=== PATIENT | female | born 1955 | race Caucasian/White ===

== ENCOUNTER → 2016-09-26 | Outpatient (CLI) | payer BC ==
[2016-09-26 14:29] LABS: ABSOLUTE EOSINOPHILS # (AUTO) 0.1 10^3/uL (0.0-0.6); ABSOLUTE LYMPHOCYTES (AUTO) 0.8 10^3/uL (0.5-4.7); ABSOLUTE MONOCYTES (AUTO) 0.3 10^3/uL (0.1-1.4); ABSOLUTE NEUT (AUTO) 3.5 10^3/uL (1.7-8.2); BASOPHILS % (AUTO) 0.5 % (0-2); EOSINOPHILS % (AUTO) 1.3 % (0-6); HEMATOCRIT 32.2 % (36.0-47.0); HEMOGLOBIN 10.8 g/dL (12.0-15.5); HGB HCT DIFFERENCE 0.2; LYMPHOCYTES % (AUTO) 17.7 % (13-45); MEAN CORPUSCULAR HEMOGLOBIN 28.5 pg (27.0-33.4); MEAN CORPUSCULAR HGB CONC 33.6 g/dL (32.0-36.0); MEAN CORPUSCULAR VOLUME 85 fl (80-97); MONOCYTES % (AUTO) 7.3 % (3-13); RED CELL DISTRIBUTION WIDTH 15.6 % (11.5-14.0); SEGMENTED NEUTROPHILS % (AUTO) 73.2 % (42-78); WHITE BLOOD COUNT 4.8 10^3/uL (4.0-10.5)
[2016-09-26 14:58] LABS: ALANINE AMINOTRANSFERASE 24 U/L (9-52); ALBUMIN 4.1 g/dL (3.5-5.0); ALKALINE PHOSPHATASE 120 U/L (38-126); AMYLASE 52 U/L (30-110); ANION GAP 15 (5-19); ASPARTATE AMINO TRANSFERASE 18 U/L (14-36); BILIRUBIN,DIRECT 0.3 mg/dL (0.0-0.4); BILIRUBIN,TOTAL 0.6 mg/dL (0.2-1.3); BLOOD UREA NITROGEN 18 mg/dL (7-20); CALCIUM 7.8 mg/dL (8.4-10.2); CARBON DIOXIDE 29 mmol/L (22-30); CHLORIDE 101 mmol/L (98-107); CREATININE RESULT 1.11 mg/dL (0.52-1.25); GLUCOSE 100 mg/dL (75-110); LIPASE 30.6 U/L (23-300); POTASSIUM 5.3 mmol/L (3.6-5.0); SODIUM 144.9 mmol/L (137-145); TOTAL PROTEIN 7.8 g/dL (6.3-8.2)
[2016-09-26 15:23] LABS: CARCINOEMBRYONIC ANTIGEN 1.1 ng/mL (<3.0)
== END ==
LOC: OD 13:47
PROVIDERS: ATTEND Specialist
DX: R10.9 Unspecified abdominal pain (principal); R97.0 Elevated carcinoembryonic antigen [CEA]; R11.0 Nausea
CPT/HCPCS: 36415; 80053; 82150; 82378; 83690; 85025

== ENCOUNTER 2016-12-05 05:32 | Inpatient (IN) | payer BC ==
[2016-11-28 09:11] LABS: HEMATOCRIT 33.3 % (36.0-47.0); HEMOGLOBIN 11.2 g/dL (12.0-15.5); HGB HCT DIFFERENCE 0.3; MEAN CORPUSCULAR HEMOGLOBIN 29.3 pg (27.0-33.4); MEAN CORPUSCULAR HGB CONC 33.6 g/dL (32.0-36.0); MEAN CORPUSCULAR VOLUME 87 fl (80-97); RED BLOOD COUNT 3.82 10^6/uL (3.72-5.28); RED CELL DISTRIBUTION WIDTH 15.5 % (11.5-14.0); WHITE BLOOD COUNT 4.2 10^3/uL (4.0-10.5)
--- NOTE | 2016-11-28 10:35 | EKG REPORT ---
SEVERITY:- NORMAL ECG - SINUS RHYTHM : Confirmed by: Esteban Ocasio 28-Nov-2016 10:34:48
[~2016-12-05 05:32] MED LIST: ACETAMINOPHEN 325 MG TABLET PO PRN; LACTATED RINGERS 1000 ML IV PRN; LIDOCAINE 0.5% INJ-PF (5 MG/ML) 50 ML SDV SUBCUT PRN
[2016-12-05] MEDS ORDERED: BUPIVACAINE HCL 0.25 % INJ/PF (2.5 MG/1 ML) 30 ML VIAL ONE (06:38)
[2016-12-05] MEDS ORDERED: FENTANYL CITRATE INJ/PF 250 MCG/5 ML AMPULE ONE (07:13)
[2016-12-05] MEDS ORDERED: ACETAMINOPHEN 100 ML IV ONE (07:13)
[2016-12-05] MEDS ORDERED: MIDAZOLAM 2 MG/2 ML INJ ONE (07:13)
[2016-12-05] MEDS ORDERED: PROPOFOL INJ 200 MG/20 ML VIAL IV ONE (07:13)
[2016-12-05] MEDS ORDERED: EPHEDRINE SULFATE INJ 50 MG/1 ML AMPULE ONE (07:14)
[2016-12-05] MEDS ORDERED: DEXMEDETOMIDINE INJ 80 MCG/20 ML VIAL IV ONE (07:14)
[2016-12-05] MEDS: CEFAZOLIN 1 GM/D5W RTU 1 GM/50 ML RTUPB IV PRN ×2 (07:30→13:15)
[2016-12-05] MEDS ORDERED: FENTANYL CITRATE INJ/PF 100 MCG/2 ML AMPUL IV PRN ×3 (07:44)
[2016-12-05] MEDS ORDERED: PROMETHAZINE HCL INJ 25 MG/1 ML VIAL IV PRN ×2 (07:44)
[2016-12-05] MEDS ORDERED: DIPHENHYDRAMINE HCL 50 MG/ML VIAL IV PRN (07:44)
[2016-12-05] MEDS ORDERED: OXYCODONE-ACETAMINOPHEN 5-325 MG TABLET PO PRN ×2 (07:44)
[2016-12-05] MEDS ORDERED: MORPHINE SULFATE 10 MG/ML INJ IV PRN ×2 (07:44→13:09)
[2016-12-05] MEDS ORDERED: MEPERIDINE HCL/PF INJ 25 MG/1 ML DISP.SYRIN IV PRN (07:44)
[2016-12-05] MEDS ORDERED: BUPIVACAINE INJ/PF LIPOSOME/PF 266 MG/20 ML SDV ONE (08:10)
--- NOTE | 2016-12-05 10:26 | PDOC DISCHARGE SUMMARY ---
Discharge Summary (SDC) - Discharge Final Diagnosis: combined open and laparoscopic abdominal wall hernia Date of Surgery: 12/05/16 Discharge Date: 12/05/16 Condition: Stable Treatment or Instructions: [facility] [address], [place] [address] Discharge Instructions: Open Abdominal Procedures (Hernia, Bowel Surgery) 1.General Information: a. DO NOT DRIVE a car or operative machinery for 1 week or as long as taking Narcotic pain medication. b. DO NOT consume alcohol, tranquilizers, sleeping medication, or any non- prescribed medication for 24 hours unless approved by your doctor or as long as taking pain medication. c. DO NOT make important decisions or sign any important papers for the first 24 hours after surgery. d. When discharged home the same day as surgery have a responsible person with you the first night. 2.Activity Restriction: 8 weeks; a. Avoid heavy lifting (> 20 lbs), straining abdominal muscles and sports, mowing lawn, vacuum cleaner and trimmer and bending over a lot. b. Walking is important to avoid blood clots in the legs and deep breathing can prevent pneumonia. c. If it fine to go for walks, up and down steps, and ride in a car. 3.Treatment: a. You may shower after 48 hours but you should not bathe in a tub or go swimming for 2 weeks. b. If you have paper strips (steri strips) on the skin, do not remove them as they will fall off in the coming weeks. Pat them dry after your shower. Sutures beneath the paper strips dissolve. If you have skin sutures or metal hermila they will be removed on your follow up visit. They may also get wet with a shower. c. Do not use oils, powders, or lotion on your incision. 4.Medications: a. You may take narcotic prescription tablets for pain if needed, one tablet every 4 hours (Percocet_). b. Stop the narcotic when able since you cannot take it and drive and they cause constipation. You may switch to Advil or Aleve as you transition from the narcotic. Many adults find good pain relief with Advil 600-800 mg three times a day with meal to work well and avoid narcotic use. High dose Advil should only be used for short courses since it can cause indigestion, ulcer bleeding in the stomach and kidney problems. c. You may resume all normal medications unless a change is specified by your doctors. 5.Diet: a. If going home the same day as surgery start with clear liquids, and if you do well then advance to normal foods low inf fat and protein. Smaller portion size may be callaway the first night. b. When discharged after hospital stay you may resume a normal diet. 6.Notify Physician If: a. Pain is not relieved by pain medication b. Persistent nausea and vomiting c. Chills, fever (above 101) d. Persistent bleeding or swelling at the operative site e. Unable to urinate for 6-8 hours f. Increased redness, drainage, or foul smelling discharge from incision 7. Follow Up Care: a. Please call our office to schedule an appointment with your doctor for 2 weeks. In the event of any postoperative problems or questions you may call our office during business hours or the On-Call surgeon through the vessel operator at [facility]. [facility] [phone] [facility] [phone] (Ask for the surgeon implementation coordinator) b. I understand the instructions for my postoperative care as described above and a copy has been given to me. _ Witness Patient/Significant Other Date Prescriptions: Oxycodone HCl/Acetaminophen [Percocet 5-325 mg Tablet] 1 tab PO Q6 #20 tab Discharge Diet: As Tolerated Discharge Activity: No Driving - while taking narcotics, No Lifting Over 10 Pounds - No lifting >20lbs Report the Following to Your Physician Immediately: Nausea, Vomiting, Fever over 101 Degrees, Swelling, Warmth, Drainage-Foul Smelling
[2016-12-05] MEDS: FENTANYL CITRATE INJ/PF 100 MCG/2 ML AMPUL ONE ×2 (10:35→10:50)
[2016-12-05] MEDS ORDERED: ONDANSETRON HCL INJ/PF 4 MG/2 ML SDV ONE ×2 (10:45→12:44)
--- NOTE | 2016-12-05 11:04 | OPERATIVE REPORT E ---
Operative Report NAME: CARYN ANTONIO : 1955 AGE: 61Y DATE OF SURGERY: 12/05/2016 ROOM: PREOPERATIVE DIAGNOSIS: Abdominal wall hernia with incarcerated transverse colon. POSTOPERATIVE DIAGNOSIS: Abdominal wall hernia with incarcerated transverse colon with adhesions. PROCEDURE: 1. Open reduction of incarcerated ventral wall hernia, with excision of hernia sac, and primary closure of fascia. 2. Open lysis of adhesions, intra-abdominal. 3. Laparoscopic placement of 20 x 15 Covidien Optimex Composite mesh. 4. Drain placement, subcutaneous tissue. SURGEON: DARCY DRISCOLL M.D. TEACHER OF GIFTED STUDENTS: CHANELLE Alba ANESTHESIA: General by endotracheal tube. COMPLICATIONS: None. ESTIMATED BLOOD LOSS: 25 mL. DRAINS: One large Jayesh. COMPLICATIONS: None. FINDINGS: See below. SUMMARY OF PROCEDURE: The patient was seen in the preop holding area, and then brought to the main operating room where general anesthesia was induced. The abdomen was exposed, the arms abducted, Louise catheter inserted. The abdomen was prepped and draped in a sterile fashion and instrumentation set up for both open and laparoscopic surgery. Surgical plan and surgical time out were conducted. The patient had a known ventral wall hernia, primarily above the umbilicus, involving the transverse colon with moderate degree of incarceration. A standard midline incision was made above the umbilicus, then down to the umbilicus and just below the umbilicus with a #10 blade. Subcutaneous tissue was divided with electrocautery. We immediately encountered the hernia sac which was dissected free of all surrounding soft tissue with electrocautery. I initially made an attempt to stay extraperitoneal and define the plane between the retroperitoneum and the anterior abdominal wall with the intent of placing a subrectus mesh; however, the scar tissue was too dense and I could not develop that plane. Therefore, we opened up the hernia sac and used electrocautery to debride it from the surrounding fascia. There were adhesions between the hernia sac and the transverse colon and these were taken down using blunt and electrocautery dissection. Once this was achieved there were more adhesions between the greater omentum and the anterior abdominal wall below the umbilicus and these were taken down using a combination of sharp and blunt dissection. Upon revealing the anterior abdominal wall at the level of the umbilicus, it was discovered that there was a second hernia right at the umbilicus. Therefore, the umbilicus was elevated off of the underlying abdominal wall, and the fascial bridge between the primary cephalad hernia, and the smaller secondary caudad hernia was opened up. This created a larger defect than originally anticipated. The defect now was approximately 10 x 12 cm. Additional adhesions were taken down in a circumferential fashion. There was no injury to bowel. The transverse colon was in good shape. I considered multiple methods for reconstruction in this moderately severe obese white female. I decided to close the fascia using a T approach. This was accomplished by approximating the fascia at the level of the umbilicus going cephalad towards the epigastric area for approximately 7 cm. We closed the abdominal wall fascia using multiple ergwic-ka-wteby #1 PDS sutures. We then closed the upper component of the T incision with multiple interrupted #1 PDS sutures again in a horizontal fashion. This was oriented perpendicular to the original incision. This thereby permitted satisfactory approximation of the full-thickness fascia and rectus muscle as a unit with minimal tension. Once this was accomplished, we moved onto the laparoscopic portion of the operation. A left upper quadrant stab wound was made with a knife, Veress needle was inserted in the peritoneal cavity, and pneumoperitoneum was established. The Veress needle was removed, a 5-mm port was inserted, and a 5-mm flexible scope was inserted. Under direct visualization 2 additional 5-mm ports were placed, one in the left lower quadrant and one in the right mid field. Findings were significant for a closed anterior abdominal wall which was photographed. We were satisfied with the closure. We took down the falciform ligament using electrocautery so as to provide a sufficient intraperitoneal margin for overlap of mesh. We brought onto the field a 20 x 15 Covidien brand Optimex Composite mesh. It was oriented such that the longitudinal dimension was oriented vertically, and 0 PDS sutures were placed in the 12, 3, 6 and 9 o'clock positions. The mesh was moistened, rolled, and brought through the anterior abdominal wall at the right mid quadrant port site incision. The mesh was unfolded and brought up to the anterior abdominal wall using the disposable suture passer. During the process of affixing the mesh at the 9 o'clock position, the inferior epigastric artery was pierced. With gentle continuous pressure, the bleeding abated. We secured our fixation sutures satisfactorily. We then used approximately 25 tacks to secure the mesh in the intervening segments. We were very satisfied with the opposition of the mesh to the anterior abdominal wall. We inspected the viscera and we felt there was no evidence of injury. Bleeding from the right inferior epigastric vessel had abated. We felt the operation was complete. Sponge and needle counts were correct. All ports were removed under direct visualization and pneumoperitoneum evacuated. A large Jayesh drain was placed in the subcutaneous space to drain the operative open pocket. All wounds were closed with hermila. Forty mL of dilute Exparel, long-acting bupivacaine, was injected in the subcutaneous space. The patient tolerated the procedure well, Louise catheter removed, and orotracheal tube removed uneventfully. The patient tolerated the procedure well and was taken to the recovery room in stable condition. DICTATING PHYSICIAN: DARCY DRISCOLL M.D. [id number] PHY#: [id number] ID: [id number] JOB#: [id number] ACCT: [id number] cc:DARCY DRISCOLL M.D. > MTDD
[2016-12-05] MEDS ORDERED: MORPHINE SULFATE 10 MG/ML INJ ONE ×2 (11:07→14:03)
[2016-12-05] MEDS ORDERED: DEXAMETHASONE SOD PHOSPHATE INJ 4 MG/1 ML VIAL ONE (12:44)
[2016-12-05] MEDS ORDERED: LIDOCAINE 2% INJ-PF (20 MG/ML) 10 ML AMPUL ONE (12:44)
[2016-12-05] MEDS ORDERED: SUCCINYLCHOLINE CHLORIDE INJ 200 MG/10 ML VIAL ONE (12:44)
[2016-12-05] MEDS ORDERED: KETOROLAC TROMETHAMINE INJ/PF 30 MG/1 ML SDV IV PRN (14:06)
[2016-12-05] MEDS ORDERED: ONDANSETRON HCL INJ/PF 4 MG/2 ML SDV IV PRN (14:06)
[2016-12-05] MEDS ORDERED: RINGERS SOLUTION,LACTATED 1,000 ML IV PRN (14:06)
[2016-12-05] MEDS: ACETAMINOPHEN 100 ML IV SCH ×2 (15:32→21:06)
[2016-12-05] MEDS: OXYCODONE-ACETAMINOPHEN 5-325 MG TABLET PO PRN ×2 (15:44→21:06)
[2016-12-05] MEDS: MORPHINE SULFATE 10 MG/ML INJ IV PRN ×2 (18:10→23:46)
[2016-12-06] MEDS: OXYCODONE-ACETAMINOPHEN 5-325 MG TABLET PO PRN (01:41)
[2016-12-06] MEDS: ACETAMINOPHEN 100 ML IV SCH ×2 (04:08→08:37)
[2016-12-06] MEDS: MORPHINE SULFATE 10 MG/ML INJ IV PRN (04:09)
[2016-12-06 08:10] VITALS: BP 133/84
--- NOTE | 2016-12-06 11:43 | DISCHARGE SUMMARY E ---
Discharge Summary NAME: CARYN ANTONIO : 1955 AGE: 61Y ADMITTED: 12/05/2016 DISCHARGED: 12/06/2016 REASON FOR ADMISSION: Large incarcerated ventral wall hernia. SUMMARY OF HOSPITALIZATION: The patient is a 61-year-old white female who was brought to the ambulatory surgery for abdominal wall herniorrhaphy. The procedure was performed and dictated separately by Dr. Yancey. Postoperatively, she did well and had no complications. By the midmorning of the first postoperative day, she was felt to be ready for discharge home. FINAL DIAGNOSIS: Ventral wall hernia with transverse colon prolapsing, status post open combined with laceration repair, Dr. Yancey with drain placement. DISPOSITION: The patient will be discharged home to the care of family. Follow up with Dr. Yancey in approximately 4 days at [facility] for drain removal. She will take pain medications as prescribed by Dr. Yancey and prescription provided. She will resume her preoperative medications, diet and be on a decreased activity status. DICTATING PHYSICIAN: DARCY YANCEY M.D. [id number] PHY#: [id number] ID: [id number] JOB#: [id number] ACCT: [id number] cc:DARCY YANCEY M.D. >
== END 2016-12-06 11:26 | disposition home or self-care (01) | DRG 355 ==
LOC: 4W 05:32 → OROUT 05:32 → 4W 12:31 → 4S 17:30 → OROUT 12-06 11:26 → 4S 12-06 11:26 → EDSTATUS 12-07 07:30
PROVIDERS: ADMIT Surgery; ATTEND Surgery
PROC: 0WUF0JZ Supplement Abdominal Wall with Synthetic Substitute, Open Approach (ICD-10-PCS; principal; 2016-12-05 07:30)
DX: K43.6 Other and unspecified ventral hernia with obstruction, without gangrene (principal); K66.0 Peritoneal adhesions (postprocedural) (postinfection); I10 Essential (primary) hypertension; E03.9 Hypothyroidism, unspecified; Z79.899 Other long term (current) drug therapy; Z85.42 Personal history of malignant neoplasm of other parts of uterus; Z85.038 Personal history of other malignant neoplasm of large intestine; Z85.828 Personal history of other malignant neoplasm of skin; Z90.710 Acquired absence of both cervix and uterus; Z88.8 Allergy status to other drugs, medicaments and biological substances
CPT/HCPCS: 36415; 752; 85027; 88302; 88341; 88342; 93005; 93010; C1781; C9290; J0131; J0330; J0690; J1100; J2250; J2270; J2405; J2704; J3010; J3490; J7120

== ENCOUNTER → 2017-12-11 | Outpatient (CLI) | payer SELFPAY | LOC: HHS 09:50 | DX: Z12.83 Encounter for screening for malignant neoplasm of skin (principal) ==

== ENCOUNTER → 2018-09-27 | Outpatient (CLI) | payer BC ==
[2018-09-27 10:24] LABS: ABSOLUTE EOSINOPHILS # (AUTO) 0.2 10^3/uL (0.0-0.6); ABSOLUTE LYMPHOCYTES (AUTO) 0.6 10^3/uL (0.5-4.7); ABSOLUTE MONOCYTES (AUTO) 0.3 10^3/uL (0.1-1.4); ABSOLUTE NEUT (AUTO) 3.2 10^3/uL (1.7-8.2); BASOPHILS % (AUTO) 0.5 % (0-2); EOSINOPHILS % (AUTO) 3.7 % (0-6); HEMATOCRIT 37.1 % (36.0-47.0); HEMOGLOBIN 12.4 g/dL (12.0-15.5); LYMPHOCYTES % (AUTO) 14.7 % (13-45); MEAN CORPUSCULAR HEMOGLOBIN 28.4 pg (27.0-33.4); MEAN CORPUSCULAR HGB CONC 33.4 g/dL (32.0-36.0); MEAN CORPUSCULAR VOLUME 85 fl (80-97); MONOCYTES % (AUTO) 6.2 % (3-13); PLATELET COUNT 209 10^3/uL (150-450); RED BLOOD COUNT 4.37 10^6/uL (3.72-5.28); RED CELL DISTRIBUTION WIDTH 15.4 % (11.5-14.0); SEGMENTED NEUTROPHILS % (AUTO) 74.9 % (42-78); TOTAL CELLS COUNTED % (AUTO) 100 %; WHITE BLOOD COUNT 4.3 10^3/uL (4.0-10.5)
[2018-09-27 10:44] LABS: ALANINE AMINOTRANSFERASE 24 U/L (9-52); ALKALINE PHOSPHATASE 116 U/L (38-126); ANION GAP 10 (5-19); ASPARTATE AMINO TRANSFERASE 18 U/L (14-36); BILIRUBIN,DIRECT 0.3 mg/dL (0.0-0.4); BILIRUBIN,TOTAL 0.5 mg/dL (0.2-1.3); BLOOD UREA NITROGEN 15 mg/dL (7-20); CALCIUM 7.4 mg/dL (8.4-10.2); CARBON DIOXIDE 29 mmol/L (22-30); CHLORIDE 103 mmol/L (98-107); CHOLESTEROL 201.16 mg/dL (0-200); GLUCOSE 89 mg/dL (75-110); POTASSIUM 4.8 mmol/L (3.6-5.0); SODIUM 141.9 mmol/L (137-145); TOTAL PROTEIN 7.6 g/dL (6.3-8.2); TRIGLYCERIDES 94 mg/dL (<150)
[2018-09-27 10:54] LABS: DIRECT LDL 107 mg/dL (<100)
[2018-09-27 10:58] LABS: FREE T3 4.55 pg/mL (2.77-5.27); FREE T4 (FREE THYROXINE) 2.15 ng/dL (0.78-2.19)
[2018-09-27 11:11] LABS: THYROID STIMULATING HORMONE 1.71 uIU/mL (0.47-4.68)
== END ==
LOC: OD 09:15
PROVIDERS: ATTEND Internal Medicine Geriatric Medicine
DX: I10 Essential (primary) hypertension (principal); E03.9 Hypothyroidism, unspecified
CPT/HCPCS: 36415; 80053; 80061; 84439; 84443; 84481; 84482; 85025; 86376

== ENCOUNTER → 2018-10-08 | Outpatient (CLI) | payer BC ==
[~2018-10-08] MED LIST changes: -ACETAMINOPHEN 325 MG TABLET PO PRN; +ALBUTEROL SULFATE 0.083% NEB 2.5 MG/3 ML AMPUL NEB ONE; -LACTATED RINGERS 1000 ML IV PRN; -LIDOCAINE 0.5% INJ-PF (5 MG/ML) 50 ML SDV SUBCUT PRN
--- NOTE | 2018-10-09 15:24 | Pulmonary Function Test ---
Pulmonary Function Test Date of Procedure:: 10/09/18 INDICATION:: Dyspnea Referring Provider: Dr. Reid Gaines It Senior Software Engineer Java: Deisy Beauchamp TOW PICKER, SECURITY ATTENDANT - Report Spirometry: FVC 2.74 L 83% postbronchodilator 2.77 L 84% FEV1 2.04 L 77% postbronchodilator 2.07 L 78% FEV1/FVC % 74 postbronchodilator 75 predicted 82 FEF 25-75% 1.53 L 55% postbronchodilator 1.58 L 57% Lung Volume: Total lung capacity 4.86 L 89% Vital capacity 2.74 L 83% Inspiratory capacity 2.12 L FRC N2 2.74 L 115% ERV 0.34 L RV 2.12 L 101% RV/TLC % 44 predicted 38 Diffusion Capactity: Diffusion capacity 23.5 85% DLCO/VA 5.4 2 142% Impression: Obstructive ventilatory defect is implied by the decrease in FEF 25-75%. No restrictive ventilatory defect. No hyperinflation or air trapping. Normal diffusion capacity.
== END ==
LOC: RT 12:59
PROVIDERS: ATTEND Internal Medicine Geriatric Medicine
DX: R06.02 Shortness of breath (principal)
CPT/HCPCS: 94060; 94727; 94729

== ENCOUNTER → 2020-07-25 | Outpatient (CLI) | payer BC ==
[~2020-07-25] MED LIST changes: -ALBUTEROL SULFATE 0.083% NEB 2.5 MG/3 ML AMPUL NEB ONE; +COVID-19 VACCINE (PFIZER)/PF 30 MCG/0.3 ML VIAL IM ONE; +EPINEPHRINE INJ/PF 1 MG/1 ML AMPULE IM PRN
== END ==
LOC: EMPHEALTH 16:33
PROVIDERS: ATTEND Internal Medicine
DX: Z23 Encounter for immunization (principal)
CPT/HCPCS: 91300